=== PATIENT | male | born 1975 | race Caucasian/White ===

== ENCOUNTER → 2023-10-01 09:43 | Outpatient (REF) | payer BC, SELFPAY ==
[2023-10-01 11:18] LABS: TSH Reflex To Free T4 0.62 uIU/ml (0.47-4.68)
[2023-10-01 15:17] LABS: tTG IgG Antibody 15.5 EU/ml (0-19)
[2023-10-01 23:53] LABS: IgA 420 mg/dl (70-400)
[2023-10-04 01:29] LABS: Endomysial IgA Antibody Titer <1:10 (<1:10)
== END ==
LOC: REG 09:43
PROVIDERS: ATTENDING PHYSICIAN Specialist; FAMILY PHYSICIAN Internal Medicine
DX: R19.5 Other fecal abnormalities (principal)
CPT/HCPCS: 36415; 82784; 83516; 84443; 86231

== ENCOUNTER → 2023-10-22 06:22 | Day surgery (SDC) | payer BC, SELFPAY | LOC: GI 06:22 | PROVIDERS: ATTENDING PHYSICIAN Specialist | DX: Z12.11 Encounter for screening for malignant neoplasm of colon (principal); R19.7 Diarrhea, unspecified; K57.30 Diverticulosis of large intestine without perforation or abscess without bleeding; R12 Heartburn; K31.7 Polyp of stomach and duodenum; C18.9 Malignant neoplasm of colon, unspecified; Z80.0 Family history of malignant neoplasm of digestive organs; Z15.09 Genetic susceptibility to other malignant neoplasm | CPT/HCPCS: 45380; 43239; 88305 ==

== ENCOUNTER → 2023-12-18 07:38 | Outpatient (REF) | payer BC, SELFPAY ==
[2023-12-18 09:35] LABS: % Basophils 0.8 % (0-2); % Eosinophils 3.6 % (0-6); % Immature Granulocytes 0.4 % (0-0.5); % Lymphocytes 39.9 % (20.5-51.1); % Monocytes 8.7 % (1.7-9.3); % Neutrophils 46.6 % (42.2-75.2); Absolute Eosinophils 0.2 10^3/uL (0-0.7); Absolute Monocytes 0.4 10^3/uL (0.1-0.6); Absolute Neutrophils 2.4 10^3/uL (1.4-6.5); Hematocrit 43.9 % (39.0-52.0); Hemoglobin 15.2 g/dL (13.0-18.0); Mean Corp Hgb Conc. 34.6 g/dL (33.0-37.0); Mean Corpuscular Hgb 30.7 pg (27.0-31.0); Mean Corpuscular Volume 88.7 fL (80.0-94.0); Mean Platelet Volume 9.6 fL (7.4-10.4); Nucleated Red Blood Cells % 0 % (-); Platelet Count 244 10^3/uL (130-400); Red Blood Cell Count 4.95 10^6/uL (4.70-6.10); Red Cell Dist. Width 12.5 % (11.5-14.5)
[2023-12-18 10:37] LABS: ALT (SGPT) 48 U/L (0-50); AST (SGOT) 31 U/L (17-59); Albumin 4.3 g/dl (3.5-5.0); Alkaline Phosphatase 73 U/L (38-126); Blood Urea Nitrogen 11 mg/dl (9-20); Calcium 9.1 mg/dl (8.4-10.2); Carbon Dioxide 26 mmol/L (22-30); Chloride 107 mmol/L (98-107); Glucose 100 mg/dl (70-99); HDL Cholesterol 56 mg/dl; LDL Cholesterol, Calculated 145 mg/dl; Potassium 4.5 mmol/L (3.5-5.1); Sodium 140 mmol/L (135-145); Total Bilirubin 0.7 mg/dl (0.2-1.3); Total Cholesterol 216 mg/dl (50-199); Total Protein 6.8 g/dl (6.3-8.2); Triglyceride 79 mg/dl (10-149); Very Low Density Lipoprotein 15 mg/dl (0-30); eGFR > 60.00
[2023-12-18 10:43] LABS: C-Reactive Protein < 5.00 mg/L (0.0-10.00)
[2023-12-18 11:14] LABS: PSA, Total - Screen 0.96 ng/ml (0.0-4.0); TSH 0.84 uIU/ml (0.47-4.68)
[2023-12-18 15:19] LABS: IgA 334 mg/dl (70-400)
[2023-12-21 06:33] LABS: Endomysial IgA Antibody Titer <1:10 (<1:10)
== END ==
LOC: REG 07:38
PROVIDERS: ATTENDING PHYSICIAN Internal Medicine Rheumatology; FAMILY PHYSICIAN Internal Medicine; OTHER PHYSICIAN Nurse Practitioner; OTHER PHYSICIAN Specialist; REFERRING PHYSICIAN Nuclear Medicine Nuclear Cardiology
DX: M05.9 Rheumatoid arthritis with rheumatoid factor, unspecified (principal); Z51.81 Encounter for therapeutic drug level monitoring; R19.5 Other fecal abnormalities; M06.9 Rheumatoid arthritis, unspecified; I48.0 Paroxysmal atrial fibrillation; G47.33 Obstructive sleep apnea (adult) (pediatric); E78.5 Hyperlipidemia, unspecified; Z68.35 Body mass index [BMI] 35.0-35.9, adult
CPT/HCPCS: 36415; 80053; 80061; 82784; 83516; 84443; 85025; 86140; 86231; G0103

== ENCOUNTER → 2023-12-29 06:47 | Day surgery (SDC) | payer BC, SELFPAY ==
--- NOTE | 2023-12-29 08:07 | ITS.CL.CARDI ---
Income Tax Return Preparer - Cardioversion
Cardioversion
Procedure Report:
Date of Procedure: December 29 2023
Procedure: Cardioversion
Indication: Symptomatic atrial fibrillation
Performing Physician: Darren Sher DO, FACC
Technique: The patient was brought to the holding area. Signed informed consent was obtained. A time out was called and performed. The patient was anesthetized by the anesthesia service. Anticoagulation status was reviewed and appropriate. R2 pads
were placed anteriorly and posteriorly. A 200 J synchronized biphasic shock restored normal sinus rhythm without significant bradycardia. There were no complications.
Conclusion: Uncomplicated cardioversion from atrial fibrillation to sinus rhythm.
Recommendation: Routine post cardioversion care. Continue filler leaf cutter long anticoagulation.
== END ==
LOC: CATH 06:47
PROVIDERS: ATTENDING PHYSICIAN Nuclear Medicine Nuclear Cardiology; FAMILY PHYSICIAN Internal Medicine
DX: I48.0 Paroxysmal atrial fibrillation (principal); I10 Essential (primary) hypertension; R07.9 Chest pain, unspecified; R06.02 Shortness of breath; E78.2 Mixed hyperlipidemia; K21.9 Gastro-esophageal reflux disease without esophagitis; G47.33 Obstructive sleep apnea (adult) (pediatric); Z87.891 Personal history of nicotine dependence; Z79.01 Long term (current) use of anticoagulants
CPT/HCPCS: 92960; 93005

== ENCOUNTER → 2024-01-06 07:05 | Outpatient (REF) | payer BC, SELFPAY | LOC: RCS 07:05 | PROVIDERS: ATTENDING PHYSICIAN Nurse Practitioner; FAMILY PHYSICIAN Internal Medicine | DX: I48.0 Paroxysmal atrial fibrillation (principal); R06.02 Shortness of breath | CPT/HCPCS: 93306 ==

== ENCOUNTER 2024-02-12 06:23 | Day surgery (SDC) | payer BC, SELFPAY ==
[2024-02-12 11:13] VITALS: BMI 33.3
[2024-02-12 11:14] VITALS: BMI 33.3
[2024-02-12 11:15] VITALS: BP 132/85
[2024-02-12 13:40] VITALS: BP 123/81
[2024-02-12 13:49] VITALS: BP 125/78
--- NOTE | 2024-02-12 14:26 | PTCARENOTE ---
report given to Jerilyn JONES. Patient just awaiting Dr. De Los Santos to see him. Will monitor patient.
== END 2024-02-12 14:50 | disposition home or self-care (01) ==
LOC: GI 06:23
PROVIDERS: ATTENDING PHYSICIAN Internal Medicine Gastroenterology
DX: K31.7 Polyp of stomach and duodenum (principal)
CPT/HCPCS: 43239; 88305

== ENCOUNTER → 2024-04-02 16:00 | Outpatient (REF) | payer BC, SELFPAY | LOC: CLAB 16:00 | PROVIDERS: ATTENDING PHYSICIAN Specialist | DX: Z30.2 Encounter for sterilization (principal) | CPT/HCPCS: 88302 ==

== ENCOUNTER 2025-03-01 08:17 | Day surgery (SDC) | payer BC, SELFPAY ==
[2025-03-01] MEDS: ELIQUIS 5 MG PO (09:54)
--- NOTE | 2025-03-01 10:59 | ITS.CL.CARDI ---
Pole Inspector - Cardioversion
Cardioversion
Procedure Report:
Procedure: MALIA-guided electrical cardioversion
Pre-operative diagnosis: Persistent atrial fibrillation
Post-operative diagnosis: Persistent atrial fibrillation status post DC cardioversion to sinus rhythm
Anesthesia: MAC
Attending Physician: Judson Rodriguez MD
Procedure Description: The patient was brought to the electrophysiology laboratory in the fasting state. Informed consent was obtained from the patient prior to the start of the procedure. Adherence to anticoagulation was confirmed. Electrodes were
placed on the patient and connected to an external defibrillator. Monitoring of blood pressure, ECG tracings, and pulse oximetry was initiated. The pads were applied to the patient in the anterior and posterior positions. The patient was sedated by
the anesthesiologist. A MALIA (reported separately) was performed prior to the cardioversion. No left atrial or left atrial appendage thrombus was seen. After the MALIA probe was removed, a 200 joule biphasic synchronized shock was delivered to the
patient under MAC anesthesia. Sinus rhythm was successfully restored. The patient recovered uneventfully from MAC anesthesia. There were no immediate post-procedure complications. The patient left the lab in good condition. The attending physician
was present throughout the entire procedure.
Impression: Successful MALIA-guided direct current cardioversion with restorationism of sinus rhythm after one 200 joule biphasic synchronized shock.
[2025-03-01 12:11] LABS: Hematocrit 43.6 % (39.0-52.0); Hemoglobin 14.4 g/dL (13.0-18.0); Mean Corp Hgb Conc. 33.0 g/dL (33.0-37.0); Mean Corpuscular Volume 91.8 fL (80.0-94.0); Nucleated Red Blood Cells % 0 % (-); Platelet Count 214 10^3/uL (130-400); Red Cell Dist. Width 12.2 % (11.5-14.5)
[2025-03-01 13:09] LABS: ALT (SGPT) 51 U/L (0-50); AST (SGOT) 25 U/L (17-59); Albumin 4.2 g/dl (3.5-5.0); Alkaline Phosphatase 71 U/L (38-126); Blood Urea Nitrogen 13 mg/dl (9-20); Calcium 9.3 mg/dl (8.4-10.2); Carbon Dioxide 28 mmol/L (22-30); Chloride 109 mmol/L (98-107); Glucose 99 mg/dl (70-99); HDL Cholesterol 64 mg/dl; LDL Cholesterol, Calculated 72 mg/dl; Potassium 4.6 mmol/L (3.5-5.1); Sodium 141 mmol/L (135-145); Total Protein 6.6 g/dl (6.3-8.2); Very Low Density Lipoprotein 14 mg/dl (0-30); eGFR > 60.00
[2025-03-01 13:15] LABS: Glycohemoglobin (HgbA1c) 5.3 % (4.0-5.6)
[2025-03-01 14:18] LABS: PSA, Total - Screen 1.08 ng/ml (0.0-4.0)
== END 2025-03-01 11:20 | disposition home or self-care (01) ==
LOC: CATH 08:17
PROVIDERS: ATTENDING PHYSICIAN Internal Medicine Cardiovascular Disease; FAMILY PHYSICIAN Internal Medicine; OTHER PHYSICIAN Internal Medicine Cardiovascular Disease; OTHER PHYSICIAN Nurse Practitioner
DX: I48.19 Other persistent atrial fibrillation (principal); Q21.12 Patent foramen ovale; I08.8 Other rheumatic multiple valve diseases; Z79.01 Long term (current) use of anticoagulants; Z79.899 Other long term (current) drug therapy; Z79.85 Long-term (current) use of injectable non-insulin antidiabetic drugs; M51.369 Other intervertebral disc degeneration, lumbar region without mention of lumbar back pain or lower extremity pain; Z87.891 Personal history of nicotine dependence
CPT/HCPCS: 93312; 93320; 93325; 36415; 80053; 80061; 83036; 85025; 92960; 93005; G0103

== ENCOUNTER 2025-04-13 06:18 | Day surgery (SDC) | payer BC, SELFPAY | END 2025-04-13 10:54 | disposition home or self-care (01) | LOC: GI 06:18 | PROVIDERS: ATTENDING PHYSICIAN Specialist | DX: D12.3 Benign neoplasm of transverse colon (principal); R19.7 Diarrhea, unspecified; K31.7 Polyp of stomach and duodenum; Z15.060 Genetic susceptibility to colorectal cancer; Z87.19 Personal history of other diseases of the digestive system | CPT/HCPCS: 45380; 43251; 88305 ==

== ENCOUNTER 2025-05-06 05:59 | Day surgery (SDC) | payer BC, SELFPAY ==
[2025-04-14 09:29] LABS: Hematocrit 42.2 % (39.0-52.0); Hemoglobin 14.4 g/dL (13.0-18.0); Mean Corp Hgb Conc. 34.1 g/dL (33.0-37.0); Mean Corpuscular Volume 89.8 fL (80.0-94.0); Nucleated Red Blood Cells % 0 % (-); Platelet Count 214 10^3/uL (130-400); Red Cell Dist. Width 11.9 % (11.5-14.5)
[2025-04-14 09:41] LABS: INR 1.00; PT 13.5 Sec (11.4-14.6)
[2025-04-14 10:10] LABS: ALT (SGPT) 65 U/L (0-50); AST (SGOT) 35 U/L (17-59); Albumin 4.2 g/dl (3.5-5.0); Alkaline Phosphatase 86 U/L (38-126); Blood Urea Nitrogen 15 mg/dl (9-20); Calcium 9.2 mg/dl (8.4-10.2); Carbon Dioxide 23 mmol/L (22-30); Chloride 109 mmol/L (98-107); Glucose 104 mg/dl (70-99); Magnesium 2.0 mg/dl (1.6-2.3); Potassium 4.4 mmol/L (3.5-5.1); Sodium 137 mmol/L (135-145); Total Protein 6.6 g/dl (6.3-8.2); eGFR > 60.00
[2025-04-14 13:39] VITALS: BMI 34.8
[2025-05-06] VITALS (10 sets, daily range): BP systolic 116–149; BP diastolic 67–95; BMI 34.8
[2025-05-06] MEDS: NSS 500 IV (07:13)
[2025-05-06 08:36] LABS: ACT-LR - POC 240 Seconds (116-155)
--- NOTE | 2025-05-06 09:04 | ITS.CL.ABL ---
Precision Assembler Bench - Ablation
Ablation
Procedure Report:
ELECTROPHYSIOLOGY ABLATION STUDY
DATE:: May 06, 2025�����������������������������REFERRING: Dr. Caleb Cody
INDICATION: Paroxysmal supraventricular tachycardia in the form of atrial fibrillation.��Prior 2019 pulm vein isolation with a 28 mm cryoballoon done clinically well for approximately 5-1/2 years but has had recent paroxysmal recurrences
HISTORY: See H and P.��As above
ANTIARRHYTHMIC DRUG: Discussed class I class III antiarrhythmic drug therapy and the patient opted for pulmonary vein isolation
PRE-PROCEDURE MALIA: No intracardiac thrombus
PRESENTING RHYTHM: Sinus rhythm with spontaneous atrial fibrillation from the left atrial posterior wall
'TIME-OUT':��called and confirmed.
SEDATION/ANESTHESIA:��provided via the anesthesia department using general anesthesia (LMA).
INTRAVENOUS/ARTERIAL ACCESS:
Right femoral venous -8Fr
Left femoral venous - 8 Fr, 6 Fr
[id number] suture bilaterally
Ultrasound guidance for bilateral femoral vein access was utilized by me to obtain access with demonstration of normal anatomy
CHADS-VASC Score:
HAS-Bled Score
PROCEDURE:
1.��A decapolar CS catheter was placed within the CS for mapping and pacing.��This was also used as the reference catheter for the 3-D map.
2. The intracardiac ultrasound catheter was positioned in the RA to identify the FO for targeting of transseptal puncture, assist��in identification of the pulmonary vein ostia, monitoring pre and post ablation pulmonary vein flow velocities,
monitoring for 'bubble' formation during RF application as a sign of thermal injury,��and to monitor for pericardial effusion during mapping and ablation procedure.���Left atrial size, LV ejection fraction, and pulmonary vein flows were monitored
pre and post ablation procedure. The other valves were inspected and found to be free of significant regurgitation or stenosis.
3.��Half of the calculated heparin bolus was administered prior to the first transeptal puncture.��Transseptal puncture was performed to diagnose RA and LA pressure so that safety of LA mapping and ablation could be further assessed, and to access
the left atrium and pulmonary veins for mapping and ablation.��This entailed advancing an 16.8 Congolese RF wire, sheath with dilator into the superior vena cava and withdrawing both (monitoring intracardiac ultrasound, fluoroscopy and tip pressure)
with the tip oriented toward the atrial septum.��The fossa ovalis was engaged (indicated by sudden displacement of the sheath tip as well as tenting of the fossa seen on intracardiac ultrasound).��Left atrial access required a pass with the
Brockenbrough needle extended.��Left atrial catheter position was confirmed by pressure monitoring (RA mean pressure 2 mm Hg and LA mean presure 6 mm Hg initial up to 10 mmHg after 750 cc of hydration), LA saturation (99%),��as well as
fluoroscopy.��The sheath was advanced over the dilator and positioned in the left atrium.��This procedure was repeated for the Agilis sheath.��The remainder of the calculated heparin bolus was administered and heparin was
infused to maintain ACT at 300 -350 seconds throughout the case.
4.��RA pacing was performed via the proximal decapolar poles and LA pacing was performed via the distal decapolar poles.
5. A quadrapolar catheter was first positioned at the His position for His Bundle recording which was tagged via the 3-D Navex sytem, and then passed to the RVA for RV pacing and recording.
6. The grid and Penta spline were placed in each of the LIPV, LSPV, RSPV and the RIPV.��
7.��Next, a 3-D map was created using Navex.���A 3-D reconstructed CT image was compared to the 3-D Navex map to assist in anatomic interpretation, mapping and ablation.��The CT image and the NavX image were fused.
8. 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 The left superior pulmonary vein and right superior pulmonary to right inferior pulmonary vein were isolated baseline. The patient spontaneously went into atrial
fibrillation with a left atrial posterior wall trigger which was spontaneous prior to ablation of the posterior wall. Utilizing all of in basket pose to the left inferior pulmonary vein with particular attention to the andrez the left inferior
pulmonary vein was isolated. Additional lesions in basket pose were given to the roof outside the left superior pulmonary vein. The patient then went into atrial fibrillation and in flower pose we performed roofline floor line and posterior wall
substrate ablation in atrial fibrillation. During the roofline atrial fibrillation persisted, we then proceeded to perform the floor line with atrial fibrillation persisting and then additional substrate modification in the posterior wall. The
patient was converted to sinus rhythm with 1 300 J synchronized biphasic shock and there were no other nonpulmonary vein triggers for atrial fibrillation. Post procedure EP study did not demonstrate any other mechanisms of atrial arrhythmia.
9. Normal sinus node and AV claus function are noted. Slight increase in sinus node recovery time under anesthesia.
TOTAL FLOURO TIME: 11.1 minutes
TOTAL RF DURATION: 0 minutes
REVERSAL OF HEPARIN: 35 mg of protamine, slow IV administration
COMPLICATIONS:
None
Intracardiac US shows no pericardial effusion post ablation.
SUMMARY:��
Complex left atrial mapping and ablation.
Reisolation of left. Pulmonary vein. And flower post roofline posterior wall substrate floor line rendering the posterior wall electrically isolated with entrance and exit block in all 4 pulmonary veins and the posterior wall determined after
cardioversion to sinus rhythm.
RECOMMENDATIONS:
1. Ambulate in 4 hours
2. Resume anticoagulation
3.��Consider same-day discharge
4.� Outpatient follow-up with Dr. Caleb Cody
Copy to: Dr. Caleb Cody
[2025-05-06] MEDS: TORADOL 30 MG IV (11:41)
--- NOTE | 2025-05-06 14:27 | W.PN.UPDATE ---
Update Note
Progress Note Update
49 yo WM s/p PVI (Same day). He denies cp, sob, mild shoulder and groin tenderness relief with toradol 30mg, voiding, gilmer diet, EKG SR, b/l groins c/d/i. He will resume Eliquis tonight. Activity restrictions reviewed. He will f/u Dr. Cody in 3mo.
He is for d/c home after 2pm.
[2025-05-06 15:58] LABS: ACT-LR - POC 268 Seconds (116-155)
== END 2025-05-06 13:57 | disposition home or self-care (01) ==
LOC: CATH 05:59
PROVIDERS: ATTENDING PHYSICIAN Internal Medicine Cardiovascular Disease; FAMILY PHYSICIAN Internal Medicine; OTHER PHYSICIAN Internal Medicine Cardiovascular Disease; OTHER PHYSICIAN Physician Assistant Medical
DX: Z79.01 Long term (current) use of anticoagulants (principal); I48.0 Paroxysmal atrial fibrillation; E78.5 Hyperlipidemia, unspecified; E66.9 Obesity, unspecified; G47.33 Obstructive sleep apnea (adult) (pediatric); I44.0 Atrioventricular block, first degree; I47.10 Supraventricular tachycardia, unspecified; K58.9 Irritable bowel syndrome, unspecified; K76.0 Fatty (change of) liver, not elsewhere classified; M06.9 Rheumatoid arthritis, unspecified; Z86.0100 Personal history of colon polyps, unspecified; Z87.891 Personal history of nicotine dependence; Z15.09 Genetic susceptibility to other malignant neoplasm; Z79.1 Long term (current) use of non-steroidal anti-inflammatories (NSAID); Z79.82 Long term (current) use of aspirin; Z79.899 Other long term (current) drug therapy; R73.03 Prediabetes; M19.90 Unspecified osteoarthritis, unspecified site; Z79.85 Long-term (current) use of injectable non-insulin antidiabetic drugs
CPT/HCPCS: 36415; 75572; 80053; 83735; 85025; 85347; 85610; 86850; 86900; 86901; 93005; 93656; 93657; C1730; C1732; C1733; C1759; C1766; C1769; C1892; C1894; Q9967